=== PATIENT | female | born 1955 | race Caucasian/White ===

== ENCOUNTER 2022-03-31 21:03 | Inpatient (IN) ==
[2022-03-31] MEDS ORDERED: [UNRECOGNIZED DRUG - OTHER] IVPB SCH (23:45)
[2022-03-31] MEDS ORDERED: VANCOMYCIN IVPB SCH (23:45)
[2022-04-01] MEDS: Gabapentin 300 MG CAPSULE PO SCH ×4 (01:05→19:58)
[2022-04-01] MEDS: Baclofen 10 MG TABLET PO SCH ×5 (01:05→19:59)
[2022-04-01] MEDS: Loratadine 10 MG TABLET PO SCH (08:38)
[2022-04-01] MEDS: *HR* Rivaroxaban 15 MG TABLET PO SCH ×2 (08:38→19:59)
[2022-04-01] MEDS ORDERED: Baclofen 10 MG TABLET PO SCH (09:00)
[2022-04-01] MEDS ORDERED: GABAPENTIN 600 MG PO SCH (09:00)
[2022-04-01] MEDS: Clobetasol Propionate 0.05% 15 GM Cream Tube TP SCH (09:49)
[2022-04-01] MEDS: Clotrimazole 1% CRM 15 GM TUBE TP SCH ×2 (09:49→19:59)
[2022-04-02 05:57] LABS: Basophils # 0.1 K/mcL (0.0-0.2); Basophils % 0.5 %; Eosinophils # 0.8 K/mcL (0.0-0.6); Eosinophils % 7.2 %; Hematocrit 30.5 % (35.3-44.9); Hemoglobin 9.3 g/dL (11.5-15.4); Immature Granulocytes % 0.5 % (0-4); Lymphocytes # 1.8 K/mcL (0.6-4.6); Lymphocytes % 15.8 %; Mean Corpuscular HGB Conc 30.5 g/dL (31.6-35.5); Mean Corpuscular Hemoglobin 28.6 pg (28.0-33.3); Mean Corpuscular Volume 93.8 fL (83.0-100.0); Mean Platelet Volume 8.8 fL (9.4-12.4); Monocytes # 0.9 K/mcL (0.0-1.3); Neutrophils # 7.5 K/mcL (1.6-8.9); Platelet Count 411 K/mcL (140-400); Red Blood Count 3.25 M/mcL (3.82-4.97); Red Cell Distribution Width 15.4 % (11.5-14.5); White Blood Count 11.1 K/mcL (4.3-11.1)
[2022-04-02 06:16] LABS: BUN/Creatinine Ratio 30 (6-26); Blood Urea Nitrogen 13 mg/dL (8-23); Carbon Dioxide 29 mEq/L (23-29); Chloride 102 mEq/L (98-107); Glucose 134 mg/dL (70-105); Osmolality,Calculated 290 (280-300); Potassium 3.6 mEq/L (3.5-5.1); Sodium 139 mEq/L (136-145); eGFR For African Americans > 60 (> 60); eGFR For Non-African Americans > 60 (> 60)
[2022-04-02] MEDS: Baclofen 10 MG TABLET PO SCH ×4 (09:38→20:16)
[2022-04-02] MEDS: Gabapentin 300 MG CAPSULE PO SCH ×3 (09:39→20:16)
[2022-04-02] MEDS: Clobetasol Propionate 0.05% 15 GM Cream Tube TP SCH (09:39)
[2022-04-02] MEDS: *HR* Rivaroxaban 15 MG TABLET PO SCH ×2 (09:39→20:16)
[2022-04-02] MEDS: Clotrimazole 1% CRM 15 GM TUBE TP SCH ×2 (09:39→20:17)
[2022-04-02] MEDS: Loratadine 10 MG TABLET PO SCH (09:39)
[2022-04-03] MEDS: Saliva Stimulant 44.3ml BOTTLE PO PRN ×2 (03:08→09:39)
[2022-04-03] MEDS ORDERED: Ergocalciferol (VIT D2) 50,000 UNIT (1.25MG) CAP PO SCH (09:00)
[2022-04-03] MEDS: Gabapentin 300 MG CAPSULE PO SCH ×3 (09:36→20:27)
[2022-04-03] MEDS: *HR* Rivaroxaban 15 MG TABLET PO SCH ×2 (09:37→20:28)
[2022-04-03] MEDS: Clotrimazole 1% CRM 15 GM TUBE TP SCH ×2 (09:37→21:39)
[2022-04-03] MEDS: Baclofen 10 MG TABLET PO SCH ×4 (09:37→20:28)
[2022-04-03] MEDS: Loratadine 10 MG TABLET PO SCH (09:37)
[2022-04-03] MEDS: Clobetasol Propionate 0.05% 15 GM Cream Tube TP SCH (09:38)
[2022-04-03] MEDS: Ergocalciferol (VIT D2) 50,000 UNIT (1.25MG) CAP PO SCH (09:49)
[2022-04-03] MEDS ORDERED: Furosemide 20 MG TABLET PO ONE (19:37)
[2022-04-04] MEDS: Gabapentin 300 MG CAPSULE PO SCH ×3 (09:28→19:54)
[2022-04-04] MEDS: Loratadine 10 MG TABLET PO SCH (09:28)
[2022-04-04] MEDS: *HR* Rivaroxaban 15 MG TABLET PO SCH ×2 (09:28→19:54)
[2022-04-04] MEDS: Baclofen 10 MG TABLET PO SCH ×4 (09:29→19:54)
[2022-04-04] MEDS: Clobetasol Propionate 0.05% 15 GM Cream Tube TP SCH (09:31)
[2022-04-04] MEDS: Clotrimazole 1% CRM 15 GM TUBE TP SCH ×2 (09:31→19:58)
[2022-04-05] MEDS ORDERED: Fluconazole 150 MG TABLET PO ONE (08:02)
[2022-04-05] MEDS: Baclofen 10 MG TABLET PO SCH ×4 (08:48→21:23)
[2022-04-05] MEDS: Gabapentin 300 MG CAPSULE PO SCH ×3 (08:48→21:24)
[2022-04-05] MEDS: Loratadine 10 MG TABLET PO SCH (08:49)
[2022-04-05] MEDS: *HR* Rivaroxaban 15 MG TABLET PO SCH ×2 (08:49→21:24)
[2022-04-05] MEDS: Clotrimazole 1% CRM 15 GM TUBE TP SCH ×2 (08:49→21:24)
[2022-04-05] MEDS: Clobetasol Propionate 0.05% 15 GM Cream Tube TP SCH (08:49)
[2022-04-05] MEDS: Ondansetron 4 MG/2 ML VIAL IVP PRN (15:13)
[2022-04-05] MEDS ORDERED: *HR* Promethazine 25 MG/ML VIAL IM ONE ×2 (18:08→20:40)
[2022-04-06] MEDS: Ondansetron 4 MG/2 ML VIAL IVP PRN (06:06)
[2022-04-06 06:36] LABS: Basophils # 0.1 K/mcL (0.0-0.2); Basophils % 0.5 %; Eosinophils # 0.9 K/mcL (0.0-0.6); Eosinophils % 7.4 %; Hemoglobin 9.1 g/dL (11.5-15.4); Immature Granulocytes % 0.6 % (0-4); Lymphocytes # 1.6 K/mcL (0.6-4.6); Lymphocytes % 13.2 %; Mean Corpuscular HGB Conc 30.3 g/dL (31.6-35.5); Mean Corpuscular Hemoglobin 28.9 pg (28.0-33.3); Mean Corpuscular Volume 95.2 fL (83.0-100.0); Mean Platelet Volume 9.1 fL (9.4-12.4); Monocytes # 0.9 K/mcL (0.0-1.3); Neutrophils # 8.6 K/mcL (1.6-8.9); Platelet Count 399 K/mcL (140-400); Red Blood Count 3.15 M/mcL (3.82-4.97); Red Cell Distribution Width 15.5 % (11.5-14.5); Segmented Neutrophils % 71.3 %; White Blood Count 12.1 K/mcL (4.3-11.1)
[2022-04-06 07:30] LABS: BUN/Creatinine Ratio 31 (6-26); Blood Urea Nitrogen 15 mg/dL (8-23); Carbon Dioxide 32 mEq/L (23-29); Chloride 102 mEq/L (98-107); Glucose 103 mg/dL (70-105); Osmolality,Calculated 289 (280-300); Potassium 3.8 mEq/L (3.5-5.1); Sodium 139 mEq/L (136-145); eGFR For African Americans > 60 (> 60); eGFR For Non-African Americans > 60 (> 60)
[2022-04-06 08:34] LABS: C-Reactive Protein 63 mg/L (Less than 10)
[2022-04-06] MEDS: *HR* Rivaroxaban 15 MG TABLET PO SCH ×2 (09:38→20:05)
[2022-04-06] MEDS: Baclofen 10 MG TABLET PO SCH ×4 (09:38→20:05)
[2022-04-06] MEDS: Loratadine 10 MG TABLET PO SCH (09:39)
[2022-04-06] MEDS: Gabapentin 300 MG CAPSULE PO SCH ×3 (09:39→20:05)
[2022-04-06] MEDS: Clobetasol Propionate 0.05% 15 GM Cream Tube TP SCH (09:40)
[2022-04-06] MEDS: Clotrimazole 1% CRM 15 GM TUBE TP SCH ×2 (09:40→20:07)
[2022-04-06] MEDS ORDERED: Iopamidol - 370 500 ML MLS IVP ONE (10:16)
[2022-04-06] MEDS: Sennosides/Docusate Sodium TABLET PO SCH ×2 (11:09→20:05)
[2022-04-06] MEDS ORDERED: *HR* Promethazine 25 MG/ML VIAL IM ONE (13:30)
[2022-04-06 13:42] LABS: Adenovirus Not Detected (Not Detect); Bordetella Pertussis Not Detected (Not Detect); Chlamydophila pneumoniae Not Detected (Not Detect); Coronavirus 229E Not Detected (Not Detect); Coronavirus HKU1 Not Detected (Not Detect); Coronavirus NL63 Not Detected (Not Detect); Coronavirus OC43 Not Detected (Not Detect); Human Metapneumovirus Not Detected (Not Detect); Human Rhinovirus/Enterovirus Not Detected (Not Detect); Influenza A Subtype 2009 H1 Not Detected (Not Detect); Influenza B Not Detected (Not Detect); Mycoplasma pneumoniae Not Detected (Not Detect); Parainfluenza Virus 1 Not Detected (Not Detect); Parainfluenza Virus 2 Not Detected (Not Detect); Parainfluenza Virus 3 Not Detected (Not Detect); Parainfluenza Virus 4 Not Detected (Not Detect); Respiratory Syncytial Virus Not Detected (Not Detect); SARS-CoV-2 Not Detected (Not Detect)
[2022-04-06] MEDS: Furosemide 20 MG/2 ML VIAL IVP SCH ×2 (14:15→20:06)
[2022-04-06] MEDS ORDERED: *HR* Promethazine 25 MG/ML VIAL IM PRN (17:50)
[2022-04-07 06:57] LABS: Hematocrit 29.7 % (35.3-44.9); Mean Corpuscular HGB Conc 30.3 g/dL (31.6-35.5); Mean Corpuscular Hemoglobin 28.8 pg (28.0-33.3); Mean Corpuscular Volume 95.2 fL (83.0-100.0); Mean Platelet Volume 9.2 fL (9.4-12.4); Platelet Count 384 K/mcL (140-400); Red Blood Count 3.12 M/mcL (3.82-4.97); Red Cell Distribution Width 15.4 % (11.5-14.5); White Blood Count 10.9 K/mcL (4.3-11.1)
[2022-04-07 07:12] LABS: BUN/Creatinine Ratio 41 (6-26); Blood Urea Nitrogen 19 mg/dL (8-23); Carbon Dioxide 34 mEq/L (23-29); Chloride 98 mEq/L (98-107); Glucose 111 mg/dL (70-105); Osmolality,Calculated 291 (280-300); Potassium 3.5 mEq/L (3.5-5.1); Sodium 139 mEq/L (136-145); eGFR For African Americans > 60 (> 60); eGFR For Non-African Americans > 60 (> 60)
[2022-04-07] MEDS: Sennosides/Docusate Sodium TABLET PO SCH ×2 (08:56→21:45)
[2022-04-07] MEDS: polyethylene glycoL 3350 17 GM POWD.PACK PO SCH (08:56)
[2022-04-07] MEDS: Loratadine 10 MG TABLET PO SCH (08:56)
[2022-04-07] MEDS: Baclofen 10 MG TABLET PO SCH ×4 (08:56→21:45)
[2022-04-07] MEDS: Gabapentin 300 MG CAPSULE PO SCH ×3 (08:56→21:46)
[2022-04-07] MEDS: *HR* Rivaroxaban 15 MG TABLET PO SCH ×2 (08:56→21:46)
[2022-04-07] MEDS: Clotrimazole 1% CRM 15 GM TUBE TP SCH ×2 (08:57→21:47)
[2022-04-07] MEDS: Clobetasol Propionate 0.05% 15 GM Cream Tube TP SCH (08:57)
[2022-04-07] MEDS ORDERED: Furosemide 40 MG TABLET PO ONE (16:03)
[2022-04-08 07:31] LABS: Basophils # 0.1 K/mcL (0.0-0.2); Basophils % 0.6 %; Eosinophils # 0.9 K/mcL (0.0-0.6); Hematocrit 30.5 % (35.3-44.9); Hemoglobin 9.3 g/dL (11.5-15.4); Immature Granulocytes % 0.5 % (0-4); Lymphocytes # 1.5 K/mcL (0.6-4.6); Lymphocytes % 14.2 %; Mean Corpuscular HGB Conc 30.5 g/dL (31.6-35.5); Mean Corpuscular Hemoglobin 28.7 pg (28.0-33.3); Mean Corpuscular Volume 94.1 fL (83.0-100.0); Mean Platelet Volume 9.3 fL (9.4-12.4); Monocytes # 0.8 K/mcL (0.0-1.3); Monocytes % 7.8 %; Neutrophils # 6.9 K/mcL (1.6-8.9); Platelet Count 428 K/mcL (140-400); Red Blood Count 3.24 M/mcL (3.82-4.97); Segmented Neutrophils % 67.9 %; White Blood Count 10.2 K/mcL (4.3-11.1)
[2022-04-08 07:55] LABS: BUN/Creatinine Ratio 49 (6-26); Blood Urea Nitrogen 22 mg/dL (8-23); Calcium 8.1 mg/dL (8.6-10.3); Carbon Dioxide 34 mEq/L (23-29); Chloride 99 mEq/L (98-107); Glucose 91 mg/dL (70-105); Osmolality,Calculated 293 (280-300); Potassium 3.6 mEq/L (3.5-5.1); Sodium 140 mEq/L (136-145); eGFR For African Americans > 60 (> 60); eGFR For Non-African Americans > 60 (> 60)
[2022-04-08] MEDS: Gabapentin 300 MG CAPSULE PO SCH ×3 (09:54→20:51)
[2022-04-08] MEDS: *HR* Rivaroxaban 15 MG TABLET PO SCH ×2 (09:54→20:51)
[2022-04-08] MEDS: Sennosides/Docusate Sodium TABLET PO SCH ×2 (09:54→20:54)
[2022-04-08] MEDS: Baclofen 10 MG TABLET PO SCH ×4 (09:54→20:52)
[2022-04-08] MEDS: Furosemide 40 MG TABLET PO SCH (09:55)
[2022-04-08] MEDS: Loratadine 10 MG TABLET PO SCH (09:55)
[2022-04-08] MEDS: Clobetasol Propionate 0.05% 15 GM Cream Tube TP SCH (09:57)
[2022-04-08] MEDS: polyethylene glycoL 3350 17 GM POWD.PACK PO SCH (09:57)
[2022-04-08] MEDS: Clotrimazole 1% CRM 15 GM TUBE TP SCH ×2 (10:21→20:54)
[2022-04-08] MEDS ORDERED: Bisacodyl 10 MG RECTAL SUPPOSITORY RC PRN (15:49)
[2022-04-08] MEDS ORDERED: Furosemide 20 MG/2 ML VIAL IVP ONE (21:06)
[2022-04-09] MEDS: Loratadine 10 MG TABLET PO SCH (08:11)
[2022-04-09] MEDS: Baclofen 10 MG TABLET PO SCH ×4 (08:11→19:59)
[2022-04-09] MEDS: Furosemide 40 MG TABLET PO SCH (08:11)
[2022-04-09] MEDS: Gabapentin 300 MG CAPSULE PO SCH ×3 (08:11→19:48)
[2022-04-09] MEDS: *HR* Rivaroxaban 15 MG TABLET PO SCH ×2 (08:11→19:48)
[2022-04-09] MEDS: Sennosides/Docusate Sodium TABLET PO SCH ×2 (08:12→19:48)
[2022-04-09] MEDS: polyethylene glycoL 3350 17 GM POWD.PACK PO SCH (08:12)
[2022-04-09] MEDS: Clobetasol Propionate 0.05% 15 GM Cream Tube TP SCH (08:12)
[2022-04-09] MEDS: Clotrimazole 1% CRM 15 GM TUBE TP SCH ×2 (08:12→19:48)
[2022-04-10] MEDS: *HR* Rivaroxaban 15 MG TABLET PO SCH ×2 (06:45→22:13)
[2022-04-10] MEDS: Baclofen 10 MG TABLET PO SCH ×4 (06:45→22:13)
[2022-04-10] MEDS: Gabapentin 300 MG CAPSULE PO SCH ×3 (06:45→22:13)
[2022-04-10] MEDS: Loratadine 10 MG TABLET PO SCH (06:45)
[2022-04-10] MEDS: Furosemide 20 MG TABLET PO SCH ×2 (11:11→17:00)
[2022-04-10] MEDS: Clotrimazole 1% CRM 15 GM TUBE TP SCH ×2 (11:12→22:15)
[2022-04-10] MEDS: Sennosides/Docusate Sodium TABLET PO SCH ×2 (11:12→22:13)
[2022-04-10] MEDS: polyethylene glycoL 3350 17 GM POWD.PACK PO SCH (11:12)
[2022-04-10] MEDS: Clobetasol Propionate 0.05% 15 GM Cream Tube TP SCH (11:12)
[2022-04-10] MEDS: Ergocalciferol (VIT D2) 50,000 UNIT (1.25MG) CAP PO SCH (12:37)
[2022-04-10] MEDS ORDERED: Furosemide 20 MG/2 ML VIAL IVP ONE (20:46)
[2022-04-11] MEDS: Sennosides/Docusate Sodium TABLET PO SCH ×2 (09:57→20:56)
[2022-04-11] MEDS: Loratadine 10 MG TABLET PO SCH (09:57)
[2022-04-11] MEDS: *HR* Rivaroxaban 15 MG TABLET PO SCH ×2 (09:57→20:56)
[2022-04-11] MEDS: Gabapentin 300 MG CAPSULE PO SCH ×3 (09:57→20:56)
[2022-04-11] MEDS: Furosemide 20 MG TABLET PO SCH ×2 (09:57→15:20)
[2022-04-11] MEDS: Clotrimazole 1% CRM 15 GM TUBE TP SCH ×2 (09:58→21:00)
[2022-04-11] MEDS: Baclofen 10 MG TABLET PO SCH ×4 (09:58→20:59)
[2022-04-11] MEDS: polyethylene glycoL 3350 17 GM POWD.PACK PO SCH (09:58)
[2022-04-11] MEDS: Clobetasol Propionate 0.05% 15 GM Cream Tube TP SCH (09:59)
[2022-04-12] MEDS: Furosemide 20 MG TABLET PO SCH ×2 (08:13→15:46)
[2022-04-12] MEDS: Loratadine 10 MG TABLET PO SCH (08:13)
[2022-04-12] MEDS: Sennosides/Docusate Sodium TABLET PO SCH ×2 (08:13→22:26)
[2022-04-12] MEDS: Gabapentin 300 MG CAPSULE PO SCH ×3 (08:13→22:09)
[2022-04-12] MEDS: Clobetasol Propionate 0.05% 15 GM Cream Tube TP SCH (08:14)
[2022-04-12] MEDS: *HR* Rivaroxaban 15 MG TABLET PO SCH ×2 (08:14→22:09)
[2022-04-12] MEDS: Clotrimazole 1% CRM 15 GM TUBE TP SCH ×2 (08:14→22:26)
[2022-04-12] MEDS: polyethylene glycoL 3350 17 GM POWD.PACK PO SCH (08:14)
[2022-04-12] MEDS: Baclofen 10 MG TABLET PO SCH ×4 (08:14→22:09)
[2022-04-13 07:24] LABS: Basophils # 0.1 K/mcL (0.0-0.2); Basophils % 0.9 %; Eosinophils # 0.8 K/mcL (0.0-0.6); Eosinophils % 9.5 %; Hematocrit 33.2 % (35.3-44.9); Immature Granulocytes % 1.1 % (0-4); Lymphocytes # 1.2 K/mcL (0.6-4.6); Lymphocytes % 13.1 %; Mean Corpuscular HGB Conc 30.1 g/dL (31.6-35.5); Mean Corpuscular Hemoglobin 28.6 pg (28.0-33.3); Mean Corpuscular Volume 94.9 fL (83.0-100.0); Mean Platelet Volume 8.9 fL (9.4-12.4); Monocytes # 0.8 K/mcL (0.0-1.3); Monocytes % 8.7 %; Neutrophils # 5.9 K/mcL (1.6-8.9); Platelet Count 403 K/mcL (140-400); Red Cell Distribution Width 15.3 % (11.5-14.5); Segmented Neutrophils % 66.7 %; White Blood Count 8.9 K/mcL (4.3-11.1)
[2022-04-13] MEDS: Furosemide 20 MG TABLET PO SCH ×2 (07:51→17:17)
[2022-04-13] MEDS: *HR* Rivaroxaban 15 MG TABLET PO SCH ×2 (07:51→21:14)
[2022-04-13] MEDS: Loratadine 10 MG TABLET PO SCH (07:52)
[2022-04-13] MEDS: Gabapentin 300 MG CAPSULE PO SCH ×3 (07:52→21:14)
[2022-04-13] MEDS: Baclofen 10 MG TABLET PO SCH ×4 (07:52→21:16)
[2022-04-13 08:58] LABS: BUN/Creatinine Ratio 33 (6-26); Blood Urea Nitrogen 16 mg/dL (8-23); Calcium 8.3 mg/dL (8.6-10.3); Carbon Dioxide 32 mEq/L (23-29); Chloride 101 mEq/L (98-107); Glucose 115 mg/dL (70-105); Osmolality,Calculated 290 (280-300); Potassium 4.1 mEq/L (3.5-5.1); Sodium 139 mEq/L (136-145); eGFR For African Americans > 60 (> 60); eGFR For Non-African Americans > 60 (> 60)
[2022-04-13 10:22] LABS: C-Reactive Protein 46 mg/L (Less than 10)
[2022-04-13] MEDS: Sennosides/Docusate Sodium TABLET PO SCH ×2 (11:45→21:15)
[2022-04-13] MEDS: polyethylene glycoL 3350 17 GM POWD.PACK PO SCH (11:45)
[2022-04-13] MEDS: Clotrimazole 1% CRM 15 GM TUBE TP SCH ×2 (14:03→21:16)
[2022-04-13] MEDS: Clobetasol Propionate 0.05% 15 GM Cream Tube TP SCH ×2 (15:30→16:49)
[2022-04-13] MEDS: Ibuprofen 600 MG TABLET PO PRN (21:14)
[2022-04-14] MEDS: Gabapentin 300 MG CAPSULE PO SCH ×3 (11:06→20:02)
[2022-04-14] MEDS: *HR* Rivaroxaban 15 MG TABLET PO SCH ×2 (11:07→20:03)
[2022-04-14] MEDS: Baclofen 10 MG TABLET PO SCH ×4 (11:07→20:03)
[2022-04-14] MEDS: Loratadine 10 MG TABLET PO SCH (11:07)
[2022-04-14] MEDS: Furosemide 20 MG TABLET PO SCH (11:07)
[2022-04-14] MEDS: Clotrimazole 1% CRM 15 GM TUBE TP SCH ×2 (11:07→20:02)
[2022-04-14] MEDS: Sennosides/Docusate Sodium TABLET PO SCH ×2 (11:07→20:02)
[2022-04-14] MEDS: Clobetasol Propionate 0.05% 15 GM Cream Tube TP SCH (11:08)
[2022-04-14] MEDS: polyethylene glycoL 3350 17 GM POWD.PACK PO SCH (11:08)
[2022-04-14] MEDS: metroNIDAZOLE 500 MG TABLET PO SCH ×2 (13:31→20:02)
[2022-04-15] MEDS: metroNIDAZOLE 500 MG TABLET PO SCH ×2 (09:03→21:34)
[2022-04-15] MEDS: Loratadine 10 MG TABLET PO SCH (09:03)
[2022-04-15] MEDS: Baclofen 10 MG TABLET PO SCH ×4 (09:03→21:34)
[2022-04-15] MEDS: Furosemide 20 MG TABLET PO SCH (09:03)
[2022-04-15] MEDS: Sennosides/Docusate Sodium TABLET PO SCH ×2 (09:03→21:34)
[2022-04-15] MEDS: *HR* Rivaroxaban 15 MG TABLET PO SCH ×2 (09:03→21:34)
[2022-04-15] MEDS: Gabapentin 300 MG CAPSULE PO SCH ×3 (09:03→21:34)
[2022-04-15] MEDS: Clobetasol Propionate 0.05% 15 GM Cream Tube TP SCH (09:04)
[2022-04-15] MEDS: Clotrimazole 1% CRM 15 GM TUBE TP SCH ×2 (09:05→21:38)
[2022-04-15] MEDS: polyethylene glycoL 3350 17 GM POWD.PACK PO SCH (09:08)
[2022-04-15] MEDS: Lactulose Oral Soln 20 GM/30 ML UDC PO PRN (21:34)
[2022-04-16] MEDS: Sennosides/Docusate Sodium TABLET PO SCH ×2 (10:56→21:44)
[2022-04-16] MEDS: metroNIDAZOLE 500 MG TABLET PO SCH ×2 (10:56→21:43)
[2022-04-16] MEDS: Baclofen 10 MG TABLET PO SCH ×4 (10:56→21:44)
[2022-04-16] MEDS: Loratadine 10 MG TABLET PO SCH (10:56)
[2022-04-16] MEDS: Gabapentin 300 MG CAPSULE PO SCH ×3 (10:56→21:44)
[2022-04-16] MEDS: *HR* Rivaroxaban 15 MG TABLET PO SCH ×2 (10:57→21:44)
[2022-04-16] MEDS: Furosemide 20 MG TABLET PO SCH (10:57)
[2022-04-16] MEDS: Clotrimazole 1% CRM 15 GM TUBE TP SCH ×2 (10:59→21:44)
[2022-04-16] MEDS: polyethylene glycoL 3350 17 GM POWD.PACK PO SCH (10:59)
[2022-04-16] MEDS: Clobetasol Propionate 0.05% 15 GM Cream Tube TP SCH (11:00)
[2022-04-16] MEDS: Vancomycin 1,750 MG/517.5 ML IV.SOLN IVPB SCH (18:51)
[2022-04-17 06:45] LABS: Basophils # 0.1 K/mcL (0.0-0.2); Basophils % 1.4 %; Eosinophils # 0.9 K/mcL (0.0-0.6); Eosinophils % 10.9 %; Hematocrit 35.5 % (35.3-44.9); Hemoglobin 10.8 g/dL (11.5-15.4); Immature Granulocytes % 1.2 % (0-4); Lymphocytes # 1.4 K/mcL (0.6-4.6); Lymphocytes % 17.8 %; Mean Corpuscular HGB Conc 30.4 g/dL (31.6-35.5); Mean Corpuscular Hemoglobin 28.6 pg (28.0-33.3); Mean Corpuscular Volume 93.9 fL (83.0-100.0); Mean Platelet Volume 9.2 fL (9.4-12.4); Monocytes # 0.8 K/mcL (0.0-1.3); Monocytes % 9.4 %; Neutrophils # 4.8 K/mcL (1.6-8.9); Platelet Count 415 K/mcL (140-400); Red Blood Count 3.78 M/mcL (3.82-4.97); Red Cell Distribution Width 15.2 % (11.5-14.5); Segmented Neutrophils % 59.3 %; White Blood Count 8.1 K/mcL (4.3-11.1)
[2022-04-17 07:08] LABS: BUN/Creatinine Ratio 53 (6-26); Blood Urea Nitrogen 20 mg/dL (8-23); Calcium 8.7 mg/dL (8.6-10.3); Carbon Dioxide 29 mEq/L (23-29); Chloride 102 mEq/L (98-107); Glucose 97 mg/dL (70-105); Osmolality,Calculated 291 (280-300); Potassium 3.9 mEq/L (3.5-5.1); Sodium 139 mEq/L (136-145); eGFR For African Americans > 60 (> 60); eGFR For Non-African Americans > 60 (> 60)
[2022-04-17] MEDS: Sennosides/Docusate Sodium TABLET PO SCH (10:30)
[2022-04-17] MEDS: metroNIDAZOLE 500 MG TABLET PO SCH (10:30)
[2022-04-17] MEDS: *HR* Rivaroxaban 10 MG TABLET PO SCH (10:30)
[2022-04-17] MEDS: Baclofen 10 MG TABLET PO SCH ×3 (10:31→17:23)
[2022-04-17] MEDS: Loratadine 10 MG TABLET PO SCH (10:31)
[2022-04-17] MEDS: Clotrimazole 1% CRM 15 GM TUBE TP SCH (10:31)
[2022-04-17] MEDS: Furosemide 20 MG TABLET PO SCH (10:31)
[2022-04-17] MEDS: Gabapentin 300 MG CAPSULE PO SCH ×2 (10:31→17:23)
[2022-04-17] MEDS: polyethylene glycoL 3350 17 GM POWD.PACK PO SCH (10:32)
[2022-04-17] MEDS: Clobetasol Propionate 0.05% 15 GM Cream Tube TP SCH (10:32)
[2022-04-17] MEDS: Ergocalciferol (VIT D2) 50,000 UNIT (1.25MG) CAP PO SCH (10:36)
[2022-04-18] MEDS: metroNIDAZOLE 500 MG TABLET PO SCH ×3 (03:17→22:30)
[2022-04-18] MEDS: Clotrimazole 1% CRM 15 GM TUBE TP SCH ×3 (03:18→22:32)
[2022-04-18] MEDS: Sennosides/Docusate Sodium TABLET PO SCH ×3 (03:18→22:30)
[2022-04-18] MEDS: Baclofen 10 MG TABLET PO SCH ×5 (05:11→22:31)
[2022-04-18] MEDS: Gabapentin 300 MG CAPSULE PO SCH ×4 (05:11→22:31)
[2022-04-18] MEDS: Vancomycin 1,750 MG/517.5 ML IV.SOLN IVPB SCH (05:39)
[2022-04-18] MEDS: Loratadine 10 MG TABLET PO SCH (10:57)
[2022-04-18] MEDS: *HR* Rivaroxaban 10 MG TABLET PO SCH (10:57)
[2022-04-18] MEDS: Furosemide 20 MG TABLET PO SCH (10:57)
[2022-04-18] MEDS: polyethylene glycoL 3350 17 GM POWD.PACK PO SCH (10:59)
[2022-04-18] MEDS: Clobetasol Propionate 0.05% 15 GM Cream Tube TP SCH (10:59)
[2022-04-18] MEDS: Lactulose Oral Soln 20 GM/30 ML UDC PO PRN (11:15)
[2022-04-19] MEDS: Vancomycin 1,750 MG/517.5 ML IV.SOLN IVPB SCH (05:35)
[2022-04-19] MEDS: Furosemide 20 MG TABLET PO SCH (09:20)
[2022-04-19] MEDS: Loratadine 10 MG TABLET PO SCH (09:20)
[2022-04-19] MEDS: metroNIDAZOLE 500 MG TABLET PO SCH ×2 (09:20→21:44)
[2022-04-19] MEDS: *HR* Rivaroxaban 10 MG TABLET PO SCH (09:20)
[2022-04-19] MEDS: Baclofen 10 MG TABLET PO SCH ×4 (09:20→21:44)
[2022-04-19] MEDS: Sennosides/Docusate Sodium TABLET PO SCH ×2 (09:20→21:44)
[2022-04-19] MEDS: Gabapentin 300 MG CAPSULE PO SCH ×3 (09:20→21:44)
[2022-04-19] MEDS: Clobetasol Propionate 0.05% 15 GM Cream Tube TP SCH (09:21)
[2022-04-19] MEDS: polyethylene glycoL 3350 17 GM POWD.PACK PO SCH (09:21)
[2022-04-19] MEDS: Clotrimazole 1% CRM 15 GM TUBE TP SCH ×2 (09:21→21:44)
[2022-04-20] MEDS: Vancomycin 1,750 MG/517.5 ML IV.SOLN IVPB SCH (04:57)
[2022-04-20 05:53] LABS: eGFR For African Americans > 60 (> 60); eGFR For Non-African Americans > 60 (> 60)
[2022-04-20] MEDS: Sennosides/Docusate Sodium TABLET PO SCH ×2 (11:22→20:46)
[2022-04-20] MEDS: Ibuprofen 600 MG TABLET PO PRN ×2 (11:22→20:45)
[2022-04-20] MEDS: Gabapentin 300 MG CAPSULE PO SCH ×3 (11:22→20:45)
[2022-04-20] MEDS: Loratadine 10 MG TABLET PO SCH (11:22)
[2022-04-20] MEDS: Furosemide 20 MG TABLET PO SCH (11:23)
[2022-04-20] MEDS: Clotrimazole 1% CRM 15 GM TUBE TP SCH ×2 (11:23→20:45)
[2022-04-20] MEDS: *HR* Rivaroxaban 10 MG TABLET PO SCH (11:23)
[2022-04-20] MEDS: metroNIDAZOLE 500 MG TABLET PO SCH ×2 (11:23→20:45)
[2022-04-20] MEDS: polyethylene glycoL 3350 17 GM POWD.PACK PO SCH (11:23)
[2022-04-20] MEDS: Baclofen 10 MG TABLET PO SCH ×4 (11:23→20:44)
[2022-04-20] MEDS: Clobetasol Propionate 0.05% 15 GM Cream Tube TP SCH (11:24)
[2022-04-21] MEDS: Ondansetron 4 MG/2 ML VIAL IVP PRN (05:11)
[2022-04-21] MEDS: Vancomycin 1,750 MG/517.5 ML IV.SOLN IVPB SCH (05:56)
[2022-04-21 07:17] LABS: Basophils % 0.3 %; Eosinophils # 0.7 K/mcL (0.0-0.6); Hematocrit 33.7 % (35.3-44.9); Hemoglobin 10.3 g/dL (11.5-15.4); Immature Granulocytes % 1.2 % (0-4); Lymphocytes % 9.9 %; Mean Corpuscular HGB Conc 30.6 g/dL (31.6-35.5); Mean Corpuscular Hemoglobin 28.5 pg (28.0-33.3); Mean Corpuscular Volume 93.4 fL (83.0-100.0); Mean Platelet Volume 9.1 fL (9.4-12.4); Monocytes # 0.6 K/mcL (0.0-1.3); Monocytes % 6.2 %; Neutrophils # 7.4 K/mcL (1.6-8.9); Platelet Count 344 K/mcL (140-400); Red Blood Count 3.61 M/mcL (3.82-4.97); Red Cell Distribution Width 15.9 % (11.5-14.5); Segmented Neutrophils % 75.4 %; White Blood Count 9.9 K/mcL (4.3-11.1)
[2022-04-21 07:39] LABS: BUN/Creatinine Ratio 64 (6-26); Blood Urea Nitrogen 27 mg/dL (8-23); Calcium 8.1 mg/dL (8.6-10.3); Carbon Dioxide 28 mEq/L (23-29); Chloride 103 mEq/L (98-107); Glucose 140 mg/dL (70-105); Osmolality,Calculated 293 (280-300); Potassium 4.2 mEq/L (3.5-5.1); Sodium 138 mEq/L (136-145); eGFR For African Americans > 60 (> 60); eGFR For Non-African Americans > 60 (> 60)
[2022-04-21] MEDS: Gabapentin 300 MG CAPSULE PO SCH ×3 (10:02→21:45)
[2022-04-21] MEDS: Furosemide 20 MG TABLET PO SCH (10:02)
[2022-04-21] MEDS: Sennosides/Docusate Sodium TABLET PO SCH ×2 (10:02→21:45)
[2022-04-21] MEDS: Baclofen 10 MG TABLET PO SCH ×4 (10:02→22:56)
[2022-04-21] MEDS: Loratadine 10 MG TABLET PO SCH (10:03)
[2022-04-21] MEDS: polyethylene glycoL 3350 17 GM POWD.PACK PO SCH ×2 (10:03→15:15)
[2022-04-21] MEDS: *HR* Rivaroxaban 10 MG TABLET PO SCH (10:03)
[2022-04-21] MEDS: metroNIDAZOLE 500 MG TABLET PO SCH ×2 (10:03→21:46)
[2022-04-21] MEDS: Clotrimazole 1% CRM 15 GM TUBE TP SCH ×2 (10:04→21:46)
[2022-04-21] MEDS: Clobetasol Propionate 0.05% 15 GM Cream Tube TP SCH (10:04)
[2022-04-21 11:43] LABS: C-Reactive Protein 25 mg/L (Less than 10)
[2022-04-21] MEDS: Ibuprofen 600 MG TABLET PO PRN (21:59)
[2022-04-22] MEDS: Vancomycin 1,750 MG/517.5 ML IV.SOLN IVPB SCH (05:43)
[2022-04-22] MEDS: Gabapentin 300 MG CAPSULE PO SCH ×3 (09:12→22:01)
[2022-04-22] MEDS: Baclofen 10 MG TABLET PO SCH ×4 (09:12→22:00)
[2022-04-22] MEDS: Furosemide 20 MG TABLET PO SCH (09:12)
[2022-04-22] MEDS: Loratadine 10 MG TABLET PO SCH (09:12)
[2022-04-22] MEDS: metroNIDAZOLE 500 MG TABLET PO SCH ×2 (09:12→22:02)
[2022-04-22] MEDS: *HR* Rivaroxaban 10 MG TABLET PO SCH (09:13)
[2022-04-22] MEDS: Sennosides/Docusate Sodium TABLET PO SCH ×2 (09:13→22:05)
[2022-04-22] MEDS: Clotrimazole 1% CRM 15 GM TUBE TP SCH ×2 (09:13→22:04)
[2022-04-22] MEDS: Clobetasol Propionate 0.05% 15 GM Cream Tube TP SCH (09:14)
[2022-04-22] MEDS: polyethylene glycoL 3350 17 GM POWD.PACK PO SCH (09:18)
[2022-04-23] MEDS: Vancomycin 1,750 MG/517.5 ML IV.SOLN IVPB SCH (05:05)
[2022-04-23] MEDS: Gabapentin 300 MG CAPSULE PO SCH ×3 (09:09→19:55)
[2022-04-23] MEDS: Furosemide 20 MG TABLET PO SCH (09:09)
[2022-04-23] MEDS: Sennosides/Docusate Sodium TABLET PO SCH ×2 (09:09→19:56)
[2022-04-23] MEDS: Loratadine 10 MG TABLET PO SCH (09:09)
[2022-04-23] MEDS: Baclofen 10 MG TABLET PO SCH ×4 (09:10→19:55)
[2022-04-23] MEDS: metroNIDAZOLE 500 MG TABLET PO SCH ×2 (09:10→19:55)
[2022-04-23] MEDS: *HR* Rivaroxaban 10 MG TABLET PO SCH (09:11)
[2022-04-23] MEDS: Clobetasol Propionate 0.05% 15 GM Cream Tube TP SCH (09:12)
[2022-04-23] MEDS: Clotrimazole 1% CRM 15 GM TUBE TP SCH ×2 (09:12→19:56)
[2022-04-23] MEDS: polyethylene glycoL 3350 17 GM POWD.PACK PO SCH (09:13)
[2022-04-24] MEDS: Vancomycin 1,750 MG/517.5 ML IV.SOLN IVPB SCH (05:50)
[2022-04-24] MEDS: *HR* Rivaroxaban 10 MG TABLET PO SCH (10:04)
[2022-04-24] MEDS: metroNIDAZOLE 500 MG TABLET PO SCH ×2 (10:04→21:45)
[2022-04-24] MEDS: Loratadine 10 MG TABLET PO SCH (10:04)
[2022-04-24] MEDS: Gabapentin 300 MG CAPSULE PO SCH ×3 (10:04→21:45)
[2022-04-24] MEDS: Baclofen 10 MG TABLET PO SCH ×4 (10:04→21:45)
[2022-04-24] MEDS: Furosemide 20 MG TABLET PO SCH (10:04)
[2022-04-24] MEDS: Sennosides/Docusate Sodium TABLET PO SCH ×2 (10:05→21:45)
[2022-04-24] MEDS: polyethylene glycoL 3350 17 GM POWD.PACK PO SCH (10:06)
[2022-04-24] MEDS: Clobetasol Propionate 0.05% 15 GM Cream Tube TP SCH (10:07)
[2022-04-24] MEDS: Clotrimazole 1% CRM 15 GM TUBE TP SCH ×2 (10:09→21:46)
[2022-04-24] MEDS: Ergocalciferol (VIT D2) 50,000 UNIT (1.25MG) CAP PO SCH (10:18)
[2022-04-25] MEDS: Vancomycin 1,750 MG/517.5 ML IV.SOLN IVPB SCH (05:59)
[2022-04-25] MEDS: Loratadine 10 MG TABLET PO SCH (09:47)
[2022-04-25] MEDS: Gabapentin 300 MG CAPSULE PO SCH ×3 (09:47→20:40)
[2022-04-25] MEDS: *HR* Rivaroxaban 10 MG TABLET PO SCH (09:47)
[2022-04-25] MEDS: Furosemide 20 MG TABLET PO SCH (09:47)
[2022-04-25] MEDS: Baclofen 10 MG TABLET PO SCH ×4 (09:48→22:07)
[2022-04-25] MEDS: Sennosides/Docusate Sodium TABLET PO SCH ×2 (09:48→20:38)
[2022-04-25] MEDS: Clotrimazole 1% CRM 15 GM TUBE TP SCH ×2 (09:49→20:43)
[2022-04-25] MEDS: metroNIDAZOLE 500 MG TABLET PO SCH ×2 (09:49→20:39)
[2022-04-25] MEDS: Clobetasol Propionate 0.05% 15 GM Cream Tube TP SCH (09:49)
[2022-04-25] MEDS: polyethylene glycoL 3350 17 GM POWD.PACK PO SCH (09:50)
[2022-04-26] MEDS: Vancomycin 1,750 MG/517.5 ML IV.SOLN IVPB SCH (04:44)
[2022-04-26] MEDS: Ondansetron 4 MG/2 ML VIAL IVP PRN (09:00)
[2022-04-26] MEDS: Baclofen 10 MG TABLET PO SCH ×4 (09:01→21:10)
[2022-04-26] MEDS: metroNIDAZOLE 500 MG TABLET PO SCH ×2 (09:01→21:11)
[2022-04-26] MEDS: Furosemide 20 MG TABLET PO SCH (09:01)
[2022-04-26] MEDS: *HR* Rivaroxaban 10 MG TABLET PO SCH (09:01)
[2022-04-26] MEDS: Gabapentin 300 MG CAPSULE PO SCH ×3 (09:01→21:10)
[2022-04-26] MEDS: polyethylene glycoL 3350 17 GM POWD.PACK PO SCH (09:02)
[2022-04-26] MEDS: Loratadine 10 MG TABLET PO SCH (09:02)
[2022-04-26] MEDS: Sennosides/Docusate Sodium TABLET PO SCH ×2 (09:02→21:53)
[2022-04-26] MEDS: Clobetasol Propionate 0.05% 15 GM Cream Tube TP SCH (09:03)
[2022-04-26] MEDS: Clotrimazole 1% CRM 15 GM TUBE TP SCH ×2 (09:03→21:52)
[2022-04-27] MEDS: Vancomycin 1,750 MG/517.5 ML IV.SOLN IVPB SCH (04:47)
[2022-04-27 07:43] LABS: Basophils # 0.1 K/mcL (0.0-0.2); Basophils % 0.6 %; Eosinophils # 0.8 K/mcL (0.0-0.6); Hemoglobin 9.8 g/dL (11.5-15.4); Immature Granulocytes % 0.7 % (0-4); Lymphocytes # 1.6 K/mcL (0.6-4.6); Lymphocytes % 13.5 %; Mean Corpuscular HGB Conc 30.6 g/dL (31.6-35.5); Mean Corpuscular Hemoglobin 28.7 pg (28.0-33.3); Mean Corpuscular Volume 93.8 fL (83.0-100.0); Mean Platelet Volume 9.2 fL (9.4-12.4); Monocytes # 1.1 K/mcL (0.0-1.3); Monocytes % 9.3 %; Neutrophils # 8.1 K/mcL (1.6-8.9); Platelet Count 318 K/mcL (140-400); Red Blood Count 3.41 M/mcL (3.82-4.97); Red Cell Distribution Width 15.9 % (11.5-14.5); Segmented Neutrophils % 68.9 %; White Blood Count 11.7 K/mcL (4.3-11.1)
[2022-04-27 08:06] LABS: BUN/Creatinine Ratio 41 (6-26); Blood Urea Nitrogen 15 mg/dL (8-23); Calcium 8.1 mg/dL (8.6-10.3); Carbon Dioxide 30 mEq/L (23-29); Chloride 103 mEq/L (98-107); Glucose 99 mg/dL (70-105); Osmolality,Calculated 291 (280-300); Potassium 3.8 mEq/L (3.5-5.1); Sodium 140 mEq/L (136-145); eGFR For African Americans > 60 (> 60); eGFR For Non-African Americans > 60 (> 60)
[2022-04-27] MEDS: *HR* Rivaroxaban 10 MG TABLET PO SCH (09:05)
[2022-04-27] MEDS: Baclofen 10 MG TABLET PO SCH ×4 (09:07→21:37)
[2022-04-27] MEDS: Loratadine 10 MG TABLET PO SCH (09:07)
[2022-04-27] MEDS: Furosemide 20 MG TABLET PO SCH (09:07)
[2022-04-27] MEDS: Sennosides/Docusate Sodium TABLET PO SCH ×2 (09:07→21:38)
[2022-04-27] MEDS: metroNIDAZOLE 500 MG TABLET PO SCH ×2 (09:08→21:37)
[2022-04-27] MEDS: Gabapentin 300 MG CAPSULE PO SCH ×3 (09:08→21:37)
[2022-04-27 09:10] LABS: C-Reactive Protein 15 mg/L (Less than 10)
[2022-04-27] MEDS: polyethylene glycoL 3350 17 GM POWD.PACK PO SCH (09:10)
[2022-04-27] MEDS: Clotrimazole 1% CRM 15 GM TUBE TP SCH ×2 (09:11→21:38)
[2022-04-27] MEDS: Clobetasol Propionate 0.05% 15 GM Cream Tube TP SCH (09:16)
[2022-04-28] MEDS: Ondansetron 4 MG/2 ML VIAL IVP PRN (04:40)
[2022-04-28] MEDS: Vancomycin 1,750 MG/517.5 ML IV.SOLN IVPB SCH (05:00)
[2022-04-28] MEDS: *HR* Rivaroxaban 10 MG TABLET PO SCH (07:59)
[2022-04-28] MEDS: metroNIDAZOLE 500 MG TABLET PO SCH (08:01)
[2022-04-28] MEDS: Gabapentin 300 MG CAPSULE PO SCH ×3 (08:01→20:51)
[2022-04-28] MEDS: Loratadine 10 MG TABLET PO SCH (08:01)
[2022-04-28] MEDS: Sennosides/Docusate Sodium TABLET PO SCH ×2 (08:01→20:51)
[2022-04-28] MEDS: Furosemide 20 MG TABLET PO SCH (08:01)
[2022-04-28] MEDS: Clobetasol Propionate 0.05% 15 GM Cream Tube TP SCH (08:02)
[2022-04-28] MEDS: Baclofen 10 MG TABLET PO SCH ×4 (08:02→20:51)
[2022-04-28] MEDS: polyethylene glycoL 3350 17 GM POWD.PACK PO SCH (08:02)
[2022-04-28] MEDS: Clotrimazole 1% CRM 15 GM TUBE TP SCH ×2 (08:03→20:51)
[2022-04-29] MEDS: Vancomycin 1,750 MG/517.5 ML IV.SOLN IVPB SCH (05:42)
[2022-04-29] MEDS: Clotrimazole 1% CRM 15 GM TUBE TP SCH ×2 (09:36→21:39)
[2022-04-29] MEDS: *HR* Rivaroxaban 10 MG TABLET PO SCH (09:36)
[2022-04-29] MEDS: Loratadine 10 MG TABLET PO SCH (09:36)
[2022-04-29] MEDS: Gabapentin 300 MG CAPSULE PO SCH ×3 (09:36→21:39)
[2022-04-29] MEDS: Baclofen 10 MG TABLET PO SCH ×4 (09:36→21:39)
[2022-04-29] MEDS: Furosemide 20 MG TABLET PO SCH (09:36)
[2022-04-29] MEDS: polyethylene glycoL 3350 17 GM POWD.PACK PO SCH (09:37)
[2022-04-29] MEDS: Sennosides/Docusate Sodium TABLET PO SCH ×2 (09:37→21:38)
[2022-04-29] MEDS: Clobetasol Propionate 0.05% 15 GM Cream Tube TP SCH (09:41)
[2022-04-29] MEDS: Ibuprofen 600 MG TABLET PO PRN (21:38)
[2022-04-30] MEDS: Vancomycin 1,750 MG/517.5 ML IV.SOLN IVPB SCH (06:04)
[2022-04-30] MEDS: Baclofen 10 MG TABLET PO SCH ×5 (08:51→20:53)
[2022-04-30] MEDS: Furosemide 20 MG TABLET PO SCH (08:51)
[2022-04-30] MEDS: *HR* Rivaroxaban 10 MG TABLET PO SCH (08:51)
[2022-04-30] MEDS: Loratadine 10 MG TABLET PO SCH (08:51)
[2022-04-30] MEDS: Sennosides/Docusate Sodium TABLET PO SCH ×2 (08:51→20:19)
[2022-04-30] MEDS: Gabapentin 300 MG CAPSULE PO SCH ×3 (08:51→20:19)
[2022-04-30] MEDS: Clobetasol Propionate 0.05% 15 GM Cream Tube TP SCH (08:52)
[2022-04-30] MEDS: Clotrimazole 1% CRM 15 GM TUBE TP SCH ×2 (08:52→20:23)
[2022-04-30] MEDS: polyethylene glycoL 3350 17 GM POWD.PACK PO SCH (08:52)
[2022-05-01] MEDS: Vancomycin 1,750 MG/517.5 ML IV.SOLN IVPB SCH (04:44)
[2022-05-01] MEDS: Baclofen 10 MG TABLET PO SCH ×4 (08:46→21:06)
[2022-05-01] MEDS: Sennosides/Docusate Sodium TABLET PO SCH ×2 (08:46→21:06)
[2022-05-01] MEDS: *HR* Rivaroxaban 10 MG TABLET PO SCH (08:46)
[2022-05-01] MEDS: Gabapentin 300 MG CAPSULE PO SCH ×3 (08:46→21:06)
[2022-05-01] MEDS: Furosemide 20 MG TABLET PO SCH (08:46)
[2022-05-01] MEDS: polyethylene glycoL 3350 17 GM POWD.PACK PO SCH (08:46)
[2022-05-01] MEDS: Loratadine 10 MG TABLET PO SCH (08:46)
[2022-05-01] MEDS: Clotrimazole 1% CRM 15 GM TUBE TP SCH ×2 (08:46→21:09)
[2022-05-01] MEDS: Clobetasol Propionate 0.05% 15 GM Cream Tube TP SCH (08:47)
[2022-05-01] MEDS: Ergocalciferol (VIT D2) 50,000 UNIT (1.25MG) CAP PO SCH (10:29)
[2022-05-02] MEDS: Vancomycin 1,750 MG/517.5 ML IV.SOLN IVPB SCH (04:57)
[2022-05-02] MEDS: Sennosides/Docusate Sodium TABLET PO SCH ×2 (09:03→21:34)
[2022-05-02] MEDS: Furosemide 20 MG TABLET PO SCH (09:03)
[2022-05-02] MEDS: Gabapentin 300 MG CAPSULE PO SCH ×3 (09:03→21:34)
[2022-05-02] MEDS: Clobetasol Propionate 0.05% 15 GM Cream Tube TP SCH (09:04)
[2022-05-02] MEDS: Baclofen 10 MG TABLET PO SCH ×4 (09:04→21:34)
[2022-05-02] MEDS: Clotrimazole 1% CRM 15 GM TUBE TP SCH ×2 (09:04→21:35)
[2022-05-02] MEDS: polyethylene glycoL 3350 17 GM POWD.PACK PO SCH (09:04)
[2022-05-02] MEDS: Loratadine 10 MG TABLET PO SCH (09:04)
[2022-05-02] MEDS: *HR* Rivaroxaban 10 MG TABLET PO SCH (09:04)
[2022-05-03] MEDS: Vancomycin 1,750 MG/517.5 ML IV.SOLN IVPB SCH (05:04)
[2022-05-03] MEDS: Loratadine 10 MG TABLET PO SCH (08:44)
[2022-05-03] MEDS: Sennosides/Docusate Sodium TABLET PO SCH ×2 (08:44→21:30)
[2022-05-03] MEDS: Baclofen 10 MG TABLET PO SCH ×4 (08:44→21:30)
[2022-05-03] MEDS: *HR* Rivaroxaban 10 MG TABLET PO SCH (08:45)
[2022-05-03] MEDS: Clotrimazole 1% CRM 15 GM TUBE TP SCH ×2 (08:45→21:31)
[2022-05-03] MEDS: polyethylene glycoL 3350 17 GM POWD.PACK PO SCH (08:45)
[2022-05-03] MEDS: Clobetasol Propionate 0.05% 15 GM Cream Tube TP SCH (08:45)
[2022-05-03] MEDS: Gabapentin 300 MG CAPSULE PO SCH ×3 (08:45→21:30)
[2022-05-03] MEDS: Furosemide 20 MG TABLET PO SCH (08:45)
[2022-05-04 04:43] LABS: Basophils # 0.1 K/mcL (0.0-0.2); Basophils % 0.6 %; Eosinophils # 0.8 K/mcL (0.0-0.6); Eosinophils % 8.3 %; Hematocrit 33.3 % (35.3-44.9); Immature Granulocytes % 0.6 % (0-4); Lymphocytes # 1.4 K/mcL (0.6-4.6); Lymphocytes % 15.1 %; Mean Corpuscular Hemoglobin 28.2 pg (28.0-33.3); Mean Corpuscular Volume 94.1 fL (83.0-100.0); Mean Platelet Volume 8.5 fL (9.4-12.4); Monocytes % 10.2 %; Neutrophils # 6.2 K/mcL (1.6-8.9); Platelet Count 280 K/mcL (140-400); Red Blood Count 3.54 M/mcL (3.82-4.97); Red Cell Distribution Width 15.9 % (11.5-14.5); Segmented Neutrophils % 65.2 %; White Blood Count 9.5 K/mcL (4.3-11.1)
[2022-05-04] MEDS: Vancomycin 1,750 MG/517.5 ML IV.SOLN IVPB SCH (05:15)
[2022-05-04 05:51] LABS: Alanine Aminotransferase 14 Units/L (7-52); Albumin 3.2 g/dL (3.5-5.7); Albumin/Globulin Ratio 1.1 (1.1-2.2); Alkaline Phosphatase 88 Units/L (34-104); Aspartate Amino Transferase 12 Units/L (13-39); BUN/Creatinine Ratio 58 (6-26); Bilirubin,Total 0.4 mg/dL (0.3-1.0); Blood Urea Nitrogen 21 mg/dL (8-23); Calcium 8.5 mg/dL (8.6-10.3); Carbon Dioxide 30 mEq/L (23-29); Chloride 102 mEq/L (98-107); Globulin 2.8 g/dL (2.4-3.5); Glucose 125 mg/dL (70-105); Osmolality,Calculated 292 (280-300); Potassium 3.8 mEq/L (3.5-5.1); Sodium 139 mEq/L (136-145); eGFR For African Americans > 60 (> 60); eGFR For Non-African Americans > 60 (> 60)
[2022-05-04] MEDS: Gabapentin 300 MG CAPSULE PO SCH ×3 (08:22→21:14)
[2022-05-04] MEDS: Sennosides/Docusate Sodium TABLET PO SCH ×2 (08:23→21:14)
[2022-05-04] MEDS: Furosemide 20 MG TABLET PO SCH (08:23)
[2022-05-04] MEDS: Loratadine 10 MG TABLET PO SCH (08:23)
[2022-05-04] MEDS: *HR* Rivaroxaban 10 MG TABLET PO SCH (08:23)
[2022-05-04] MEDS: Baclofen 10 MG TABLET PO SCH ×4 (08:23→21:13)
[2022-05-04] MEDS: polyethylene glycoL 3350 17 GM POWD.PACK PO SCH (08:23)
[2022-05-04] MEDS: Clobetasol Propionate 0.05% 15 GM Cream Tube TP SCH (08:26)
[2022-05-04] MEDS: Clotrimazole 1% CRM 15 GM TUBE TP SCH ×2 (08:28→21:22)
[2022-05-04] MEDS: Ibuprofen 600 MG TABLET PO PRN (08:41)
[2022-05-04 09:04] LABS: C-Reactive Protein 23 mg/L (Less than 10)
[2022-05-05] MEDS: Vancomycin 1,750 MG/517.5 ML IV.SOLN IVPB SCH (05:59)
[2022-05-05] MEDS: Gabapentin 300 MG CAPSULE PO SCH ×3 (08:23→20:37)
[2022-05-05] MEDS: *HR* Rivaroxaban 10 MG TABLET PO SCH (08:23)
[2022-05-05] MEDS: Sennosides/Docusate Sodium TABLET PO SCH ×2 (08:23→20:37)
[2022-05-05] MEDS: Loratadine 10 MG TABLET PO SCH (08:24)
[2022-05-05] MEDS: Furosemide 20 MG TABLET PO SCH (08:24)
[2022-05-05] MEDS: Clobetasol Propionate 0.05% 15 GM Cream Tube TP SCH (08:24)
[2022-05-05] MEDS: Clotrimazole 1% CRM 15 GM TUBE TP SCH ×2 (08:24→20:38)
[2022-05-05] MEDS: Baclofen 10 MG TABLET PO SCH ×4 (08:24→20:37)
[2022-05-05] MEDS: polyethylene glycoL 3350 17 GM POWD.PACK PO SCH (08:25)
[2022-05-05] MEDS ORDERED: Trolamine Salicylate/Aloe Vera 85 APPL/85 GM TUBE TP PRN (13:24)
[2022-05-06] MEDS: Vancomycin 1,750 MG/517.5 ML IV.SOLN IVPB SCH (05:57)
[2022-05-06] MEDS: Furosemide 20 MG TABLET PO SCH (10:03)
[2022-05-06] MEDS: *HR* Rivaroxaban 10 MG TABLET PO SCH (10:04)
[2022-05-06] MEDS: Loratadine 10 MG TABLET PO SCH (10:04)
[2022-05-06] MEDS: Gabapentin 300 MG CAPSULE PO SCH ×3 (10:04→21:09)
[2022-05-06] MEDS: Baclofen 10 MG TABLET PO SCH ×4 (10:04→21:08)
[2022-05-06] MEDS: Clotrimazole 1% CRM 15 GM TUBE TP SCH ×2 (10:04→21:09)
[2022-05-06] MEDS: Sennosides/Docusate Sodium TABLET PO SCH ×2 (10:04→21:09)
[2022-05-06] MEDS: polyethylene glycoL 3350 17 GM POWD.PACK PO SCH (10:05)
[2022-05-06] MEDS: Clobetasol Propionate 0.05% 15 GM Cream Tube TP SCH (10:05)
[2022-05-06] MEDS: Ibuprofen 600 MG TABLET PO PRN (21:08)
[2022-05-06] MEDS: Nystatin POWDER 30 GM BOTTLE TP SCH (21:09)
[2022-05-07] MEDS: Vancomycin 1,750 MG/517.5 ML IV.SOLN IVPB SCH (04:40)
[2022-05-07] MEDS: Loratadine 10 MG TABLET PO SCH (08:41)
[2022-05-07] MEDS: Gabapentin 300 MG CAPSULE PO SCH ×3 (08:41→19:24)
[2022-05-07] MEDS: Furosemide 20 MG TABLET PO SCH (08:42)
[2022-05-07] MEDS: *HR* Rivaroxaban 10 MG TABLET PO SCH (08:42)
[2022-05-07] MEDS: Baclofen 10 MG TABLET PO SCH ×4 (08:42→19:23)
[2022-05-07] MEDS: Sennosides/Docusate Sodium TABLET PO SCH ×2 (08:42→19:24)
[2022-05-07] MEDS: Clotrimazole 1% CRM 15 GM TUBE TP SCH ×2 (08:44→19:23)
[2022-05-07] MEDS: Nystatin POWDER 30 GM BOTTLE TP SCH ×3 (08:44→19:23)
[2022-05-07] MEDS: polyethylene glycoL 3350 17 GM POWD.PACK PO SCH (08:46)
[2022-05-07] MEDS: Clobetasol Propionate 0.05% 15 GM Cream Tube TP SCH (08:46)
[2022-05-07] MEDS: Ibuprofen 600 MG TABLET PO PRN (22:04)
[2022-05-08] MEDS: Vancomycin 1,750 MG/517.5 ML IV.SOLN IVPB SCH (04:21)
[2022-05-08] MEDS: Baclofen 10 MG TABLET PO SCH ×4 (07:34→21:56)
[2022-05-08] MEDS: Loratadine 10 MG TABLET PO SCH (07:34)
[2022-05-08] MEDS: Gabapentin 300 MG CAPSULE PO SCH ×3 (07:34→21:55)
[2022-05-08] MEDS: Furosemide 20 MG TABLET PO SCH (07:34)
[2022-05-08] MEDS: *HR* Rivaroxaban 10 MG TABLET PO SCH (07:35)
[2022-05-08] MEDS: polyethylene glycoL 3350 17 GM POWD.PACK PO SCH (07:35)
[2022-05-08] MEDS: Sennosides/Docusate Sodium TABLET PO SCH ×2 (15:05→21:55)
[2022-05-08] MEDS: Clotrimazole 1% CRM 15 GM TUBE TP SCH ×2 (15:05→21:59)
[2022-05-08] MEDS: Nystatin POWDER 30 GM BOTTLE TP SCH ×3 (15:06→21:57)
[2022-05-08] MEDS: Clobetasol Propionate 0.05% 15 GM Cream Tube TP SCH (15:06)
[2022-05-08] MEDS: metroNIDAZOLE 500 MG TABLET PO SCH ×2 (15:18→21:55)
[2022-05-08] MEDS: Ergocalciferol (VIT D2) 50,000 UNIT (1.25MG) CAP PO SCH (15:34)
[2022-05-08] MEDS: Ibuprofen 600 MG TABLET PO PRN (22:30)
[2022-05-09] MEDS: Vancomycin 1,750 MG/517.5 ML IV.SOLN IVPB SCH (05:47)
[2022-05-09] MEDS: metroNIDAZOLE 500 MG TABLET PO SCH ×2 (08:11→21:04)
[2022-05-09] MEDS: *HR* Rivaroxaban 10 MG TABLET PO SCH (08:11)
[2022-05-09] MEDS: Furosemide 20 MG TABLET PO SCH (08:11)
[2022-05-09] MEDS: Gabapentin 300 MG CAPSULE PO SCH ×3 (08:11→21:04)
[2022-05-09] MEDS: Loratadine 10 MG TABLET PO SCH (08:11)
[2022-05-09] MEDS: Baclofen 10 MG TABLET PO SCH ×4 (08:11→21:04)
[2022-05-09] MEDS: Sennosides/Docusate Sodium TABLET PO SCH ×2 (08:11→21:03)
[2022-05-09] MEDS: Clotrimazole 1% CRM 15 GM TUBE TP SCH ×2 (08:12→21:11)
[2022-05-09] MEDS: polyethylene glycoL 3350 17 GM POWD.PACK PO SCH (08:12)
[2022-05-09] MEDS: Nystatin POWDER 30 GM BOTTLE TP SCH ×3 (08:28→21:11)
[2022-05-09] MEDS: Clobetasol Propionate 0.05% 15 GM Cream Tube TP SCH (08:28)
[2022-05-09 18:13] LABS: Basophils # 0.1 K/mcL (0.0-0.2); Basophils % 0.9 %; Eosinophils # 0.7 K/mcL (0.0-0.6); Eosinophils % 8.2 %; Hematocrit 36.1 % (35.3-44.9); Hemoglobin 10.9 g/dL (11.5-15.4); Immature Granulocytes % 0.6 % (0-4); Lymphocytes # 1.4 K/mcL (0.6-4.6); Lymphocytes % 17.4 %; Mean Corpuscular HGB Conc 30.2 g/dL (31.6-35.5); Mean Platelet Volume 8.9 fL (9.4-12.4); Monocytes # 0.6 K/mcL (0.0-1.3); Neutrophils # 5.2 K/mcL (1.6-8.9); Platelet Count 317 K/mcL (140-400); Red Blood Count 3.76 M/mcL (3.82-4.97); Red Cell Distribution Width 16.1 % (11.5-14.5); Segmented Neutrophils % 64.9 %; White Blood Count 8.1 K/mcL (4.3-11.1)
[2022-05-09 18:27] LABS: BUN/Creatinine Ratio 46 (6-26); Blood Urea Nitrogen 21 mg/dL (8-23); Calcium 8.7 mg/dL (8.6-10.3); Carbon Dioxide 29 mEq/L (23-29); Chloride 100 mEq/L (98-107); Glucose 167 mg/dL (70-105); Osmolality,Calculated 293 (280-300); Potassium 3.7 mEq/L (3.5-5.1); Sodium 138 mEq/L (136-145); eGFR For African Americans > 60 (> 60); eGFR For Non-African Americans > 60 (> 60)
[2022-05-09] MEDS: Ibuprofen 600 MG TABLET PO PRN (21:08)
[2022-05-10] MEDS: Loratadine 10 MG TABLET PO SCH (09:14)
[2022-05-10] MEDS: Sennosides/Docusate Sodium TABLET PO SCH ×2 (09:14→20:08)
[2022-05-10] MEDS: *HR* Rivaroxaban 10 MG TABLET PO SCH (09:14)
[2022-05-10] MEDS: Furosemide 20 MG TABLET PO SCH (09:14)
[2022-05-10] MEDS: metroNIDAZOLE 500 MG TABLET PO SCH ×2 (09:14→20:08)
[2022-05-10] MEDS: Baclofen 10 MG TABLET PO SCH ×4 (09:14→20:08)
[2022-05-10] MEDS: Gabapentin 300 MG CAPSULE PO SCH ×3 (09:14→20:08)
[2022-05-10] MEDS: Clotrimazole 1% CRM 15 GM TUBE TP SCH ×2 (09:15→20:09)
[2022-05-10] MEDS: Nystatin POWDER 30 GM BOTTLE TP SCH ×3 (09:15→20:09)
[2022-05-10] MEDS: polyethylene glycoL 3350 17 GM POWD.PACK PO SCH (09:15)
[2022-05-10] MEDS: Clobetasol Propionate 0.05% 15 GM Cream Tube TP SCH (09:18)
[2022-05-10] MEDS: Ibuprofen 600 MG TABLET PO PRN (20:07)
[2022-05-11] MEDS ORDERED: Ketorolac 30 MG/ML VIAL IVP ONE (00:52)
[2022-05-11] MEDS ORDERED: 0.9 % Sodium Chloride 1,000 ML IVC SCH (01:00)
[2022-05-11] MEDS: Artificial Tears SOLN 15 ML BOTTLE BOTH EYES SCH ×5 (01:03→21:41)
[2022-05-11] MEDS: Ondansetron 4 MG/2 ML VIAL IVP PRN (01:08)
[2022-05-11 07:38] LABS: Basophils # 0.1 K/mcL (0.0-0.2); Basophils % 0.9 %; Eosinophils # 0.7 K/mcL (0.0-0.6); Hematocrit 32.5 % (35.3-44.9); Hemoglobin 9.6 g/dL (11.5-15.4); Immature Granulocytes % 0.9 % (0-4); Lymphocytes # 1.6 K/mcL (0.6-4.6); Lymphocytes % 20.7 %; Mean Corpuscular HGB Conc 29.5 g/dL (31.6-35.5); Mean Corpuscular Hemoglobin 28.7 pg (28.0-33.3); Monocytes # 0.7 K/mcL (0.0-1.3); Monocytes % 9.5 %; Neutrophils # 4.6 K/mcL (1.6-8.9); Platelet Count 292 K/mcL (140-400); Red Blood Count 3.35 M/mcL (3.82-4.97); Red Cell Distribution Width 16.6 % (11.5-14.5); White Blood Count 7.8 K/mcL (4.3-11.1)
[2022-05-11 07:52] LABS: BUN/Creatinine Ratio 50 (6-26); Blood Urea Nitrogen 21 mg/dL (8-23); Calcium 8.5 mg/dL (8.6-10.3); Carbon Dioxide 31 mEq/L (23-29); Chloride 105 mEq/L (98-107); Glucose 102 mg/dL (70-105); Osmolality,Calculated 297 (280-300); Potassium 4.3 mEq/L (3.5-5.1); Sodium 142 mEq/L (136-145); eGFR For African Americans > 60 (> 60); eGFR For Non-African Americans > 60 (> 60)
[2022-05-11] MEDS: Sennosides/Docusate Sodium TABLET PO SCH ×2 (08:54→21:41)
[2022-05-11] MEDS: *HR* Rivaroxaban 10 MG TABLET PO SCH (08:54)
[2022-05-11] MEDS: Gabapentin 300 MG CAPSULE PO SCH ×3 (08:54→21:42)
[2022-05-11] MEDS: metroNIDAZOLE 500 MG TABLET PO SCH ×2 (08:54→21:42)
[2022-05-11] MEDS: Loratadine 10 MG TABLET PO SCH (08:54)
[2022-05-11] MEDS: Baclofen 10 MG TABLET PO SCH ×4 (08:54→21:42)
[2022-05-11] MEDS: Clotrimazole 1% CRM 15 GM TUBE TP SCH ×2 (08:58→21:43)
[2022-05-11] MEDS: Nystatin POWDER 30 GM BOTTLE TP SCH ×3 (08:58→21:43)
[2022-05-11] MEDS: Clobetasol Propionate 0.05% 15 GM Cream Tube TP SCH (08:58)
[2022-05-11] MEDS: polyethylene glycoL 3350 17 GM POWD.PACK PO SCH (09:00)
[2022-05-11] MEDS: Ibuprofen 600 MG TABLET PO PRN (09:09)
[2022-05-11] MEDS ORDERED: 0.9 % Sodium Chloride 250 ML IVC ONE (11:02)
[2022-05-11 12:10] LABS: C-Reactive Protein 18 mg/L (Less than 10)
[2022-05-11 13:47] LABS: Adenovirus Not Detected (Not Detect); Bordetella Pertussis Not Detected (Not Detect); Chlamydophila pneumoniae Not Detected (Not Detect); Coronavirus 229E Not Detected (Not Detect); Coronavirus HKU1 Not Detected (Not Detect); Coronavirus NL63 Not Detected (Not Detect); Coronavirus OC43 Not Detected (Not Detect); Human Metapneumovirus Not Detected (Not Detect); Human Rhinovirus/Enterovirus Not Detected (Not Detect); Influenza A Subtype 2009 H1 Not Detected (Not Detect); Influenza B Not Detected (Not Detect); Mycoplasma pneumoniae Not Detected (Not Detect); Parainfluenza Virus 1 Not Detected (Not Detect); Parainfluenza Virus 2 Not Detected (Not Detect); Parainfluenza Virus 3 Not Detected (Not Detect); Parainfluenza Virus 4 Not Detected (Not Detect); Respiratory Syncytial Virus Not Detected (Not Detect); SARS-CoV-2 Not Detected (Not Detect)
[2022-05-12] MEDS: Artificial Tears SOLN 15 ML BOTTLE BOTH EYES SCH ×3 (07:52→18:06)
[2022-05-12] MEDS: metroNIDAZOLE 500 MG TABLET PO SCH ×2 (07:53→21:06)
[2022-05-12] MEDS: Gabapentin 300 MG CAPSULE PO SCH ×3 (07:53→21:06)
[2022-05-12] MEDS: Sennosides/Docusate Sodium TABLET PO SCH ×2 (07:53→21:06)
[2022-05-12] MEDS: *HR* Rivaroxaban 10 MG TABLET PO SCH (07:54)
[2022-05-12] MEDS: Loratadine 10 MG TABLET PO SCH (07:54)
[2022-05-12] MEDS: Baclofen 10 MG TABLET PO SCH ×4 (07:54→21:06)
[2022-05-12] MEDS: Nystatin POWDER 30 GM BOTTLE TP SCH ×3 (07:54→21:07)
[2022-05-12] MEDS: polyethylene glycoL 3350 17 GM POWD.PACK PO SCH (07:54)
[2022-05-12] MEDS: Clobetasol Propionate 0.05% 15 GM Cream Tube TP SCH (07:55)
[2022-05-12] MEDS: Clotrimazole 1% CRM 15 GM TUBE TP SCH ×2 (07:55→21:07)
[2022-05-12] MEDS: Ibuprofen 600 MG TABLET PO PRN (21:06)
[2022-05-13] MEDS: Artificial Tears SOLN 15 ML BOTTLE BOTH EYES SCH ×5 (01:36→21:17)
[2022-05-13] MEDS: Sennosides/Docusate Sodium TABLET PO SCH ×2 (09:10→21:15)
[2022-05-13] MEDS: Gabapentin 300 MG CAPSULE PO SCH ×3 (09:10→21:14)
[2022-05-13] MEDS: Loratadine 10 MG TABLET PO SCH (09:10)
[2022-05-13] MEDS: *HR* Rivaroxaban 10 MG TABLET PO SCH (09:10)
[2022-05-13] MEDS: Ibuprofen 600 MG TABLET PO PRN ×2 (09:11→21:14)
[2022-05-13] MEDS: Baclofen 10 MG TABLET PO SCH ×4 (09:11→21:15)
[2022-05-13] MEDS: metroNIDAZOLE 500 MG TABLET PO SCH ×2 (09:11→21:15)
[2022-05-13] MEDS: Nystatin POWDER 30 GM BOTTLE TP SCH ×2 (09:12→14:02)
[2022-05-13] MEDS: Clobetasol Propionate 0.05% 15 GM Cream Tube TP SCH (09:13)
[2022-05-13] MEDS: polyethylene glycoL 3350 17 GM POWD.PACK PO SCH (09:13)
[2022-05-13] MEDS: Clotrimazole 1% CRM 15 GM TUBE TP SCH ×2 (09:14→21:17)
[2022-05-13] MEDS ORDERED: Nystatin POWDER 30 GM BOTTLE TP PRN (14:04)
[2022-05-14] MEDS: Artificial Tears SOLN 15 ML BOTTLE BOTH EYES SCH ×4 (08:15→21:22)
[2022-05-14] MEDS: Clobetasol Propionate 0.05% 15 GM Cream Tube TP SCH (08:15)
[2022-05-14] MEDS: Clotrimazole 1% CRM 15 GM TUBE TP SCH ×2 (08:17→21:26)
[2022-05-14] MEDS: metroNIDAZOLE 500 MG TABLET PO SCH ×2 (08:19→21:22)
[2022-05-14] MEDS: Sennosides/Docusate Sodium TABLET PO SCH ×2 (08:19→21:22)
[2022-05-14] MEDS: Gabapentin 300 MG CAPSULE PO SCH ×3 (08:19→21:23)
[2022-05-14] MEDS: Ibuprofen 600 MG TABLET PO PRN ×2 (08:19→21:43)
[2022-05-14] MEDS: *HR* Rivaroxaban 10 MG TABLET PO SCH (08:20)
[2022-05-14] MEDS: polyethylene glycoL 3350 17 GM POWD.PACK PO SCH (08:20)
[2022-05-14] MEDS: Loratadine 10 MG TABLET PO SCH (08:20)
[2022-05-14] MEDS: Baclofen 10 MG TABLET PO SCH ×4 (08:20→21:22)
[2022-05-14] MEDS ORDERED: Furosemide 20 MG TABLET PO ONE (08:33)
[2022-05-15] MEDS: Baclofen 10 MG TABLET PO SCH ×4 (08:14→22:26)
[2022-05-15] MEDS: Clobetasol Propionate 0.05% 15 GM Cream Tube TP SCH (08:14)
[2022-05-15] MEDS: Artificial Tears SOLN 15 ML BOTTLE BOTH EYES SCH ×4 (08:14→22:25)
[2022-05-15] MEDS: Clotrimazole 1% CRM 15 GM TUBE TP SCH ×2 (08:15→22:31)
[2022-05-15] MEDS: Sennosides/Docusate Sodium TABLET PO SCH ×2 (08:15→22:26)
[2022-05-15] MEDS: Loratadine 10 MG TABLET PO SCH (08:15)
[2022-05-15] MEDS: *HR* Rivaroxaban 10 MG TABLET PO SCH (08:15)
[2022-05-15] MEDS: Gabapentin 300 MG CAPSULE PO SCH ×3 (08:15→22:26)
[2022-05-15] MEDS: metroNIDAZOLE 500 MG TABLET PO SCH ×2 (08:15→22:26)
[2022-05-15] MEDS: polyethylene glycoL 3350 17 GM POWD.PACK PO SCH (08:16)
[2022-05-15] MEDS: Ergocalciferol (VIT D2) 50,000 UNIT (1.25MG) CAP PO SCH (09:21)
[2022-05-15 19:39] VITALS: PULSE 80
[2022-05-16] MEDS: Ibuprofen 600 MG TABLET PO PRN (04:17)
[2022-05-16 06:47] VITALS: BP 123/71; RESP 16; TEMP 97.7; O2SAT 92
[2022-05-16] MEDS: Sennosides/Docusate Sodium TABLET PO SCH (08:49)
[2022-05-16] MEDS: Clotrimazole 1% CRM 15 GM TUBE TP SCH (08:49)
[2022-05-16] MEDS: Loratadine 10 MG TABLET PO SCH (08:49)
[2022-05-16] MEDS: Baclofen 10 MG TABLET PO SCH (08:49)
[2022-05-16] MEDS: *HR* Rivaroxaban 10 MG TABLET PO SCH (08:49)
[2022-05-16] MEDS: metroNIDAZOLE 500 MG TABLET PO SCH (08:49)
[2022-05-16] MEDS: Gabapentin 300 MG CAPSULE PO SCH (08:49)
[2022-05-16] MEDS: Artificial Tears SOLN 15 ML BOTTLE BOTH EYES SCH (08:49)
[2022-05-16] MEDS: polyethylene glycoL 3350 17 GM POWD.PACK PO SCH (08:49)
[2022-05-16] MEDS: Clobetasol Propionate 0.05% 15 GM Cream Tube TP SCH (08:50)
== END 2022-05-16 11:00 | disposition home health service (06) | DRG 299 ==
LOC: SUATTDRO 21:16 → INPPIK 21:16
PROVIDERS: ADMIT Internal Medicine; ATTEND Family Medicine